=== PATIENT | male | born 1955 | race Caucasian/White ===

== ENCOUNTER → 2019-06-25 | Outpatient (CLI) | payer MEDICARE ==
--- NOTE | 2019-06-25 10:30 | Diagnostic Imaging Report ---
Exam: Bone mineral density study. History: Osteopenia. Comparison: None Discussion: Evaluation of the left hip, and lumbar spine was performed utilizing DEXA Hologic bone densitometer. The study is technically adequate. Left hip total bone mineral density: 0.521gm/cm2, T-score is -3.4, Z-score is -2.9. Left hip femoral neck bone mineral density: 0.553gm/cm2, T-score is -2.8, Z-score is -1.7. Lumbar spine total bone mineral density:0.924gm/cm2, T-score is-1.5, Z-score is -0.7. Impression: 1. Osteoporosis of the left hip, fracture risk is high 2. Osteopenia of the lumbar spine, fracture risk is increased Least significant change (LSC) for bone mineral density as provided by powder monkey is 0.023 g/cm2 for lumbar spine and 0.027 g/cm2 for total hip. 10 -year fracture risk per WHO Fracture Risk Assessment Tool (FRAX) for: Not reported because some T-scores at or below -2.5. Patient treated for osteoporosis The patient's fracture risk is compared to an age-matched control. Medical evaluation for secondary causes of low bone bone mineral density may be appropriate. Correlate clinically for the necessity and timing of the next bone mineral density study. Signed by: Dr. Patric Nur M.D. on 06/25/2019 10:26 AM
== END ==
LOC: DX 09:20
PROVIDERS: ATTEND Specialist
DX: M81.0 Age-related osteoporosis without current pathological fracture (principal)
CPT/HCPCS: 77080

== ENCOUNTER 2021-08-10 08:46 | Outpatient (RCR) | payer MEDICARE ==
[2021-08-10] MEDS ORDERED: LIDOCAINE/PRILOCAINE 2.5-2.5% KIT ONE (12:38)
[2021-08-10] MEDS ORDERED: MUPIROCIN 2% OINT 22 GM TUBE ONE (12:38)
== END 2021-08-30 ==
LOC: WCC 08:46
PROVIDERS: ATTEND Family Medicine
DX: L89.322 Pressure ulcer of left buttock, stage 2 (principal); I95.9 Hypotension, unspecified; N18.6 End stage renal disease; Q05.9 Spina bifida, unspecified
CPT/HCPCS: 87071; 87075; 87186; 87205

== ENCOUNTER 2021-11-30 06:30 | Emergency (ER) | payer MEDICARE, OTHER ==
[~2021-11-30] VITALS: Ht 154.9 cm; Wt 61.7 kg
== END 2021-11-30 07:37 | disposition home or self-care (01) ==
LOC: ER 06:38
DX: N18.6 End stage renal disease (principal); Z99.2 Dependence on renal dialysis; Z59.89 Other problems related to housing and economic circumstances; G40.909 Epilepsy, unspecified, not intractable, without status epilepticus; Q05.9 Spina bifida, unspecified; H54.62 Unqualified visual loss, left eye, normal vision right eye
CPT/HCPCS: 99283

== ENCOUNTER → 2022-06-30 | Outpatient (RCR) | payer MEDICARE | LOC: WCC 06-16 09:45 | PROVIDERS: ATTEND Internal Medicine Infectious Disease | DX: L89.323 Pressure ulcer of left buttock, stage 3 (principal); N18.6 End stage renal disease; I95.9 Hypotension, unspecified; Q05.9 Spina bifida, unspecified | CPT/HCPCS: 87071; 87075; 87186; 87205 ==

== ENCOUNTER 2022-07-24 10:09 | Outpatient (RCR) | payer MEDICARE ==
[2022-08-01] MEDS ORDERED: CYCLOBENZAPRINE10 MG PO (11:28)
[2022-08-01] MEDS ORDERED: AMLODIPINE BESYL5 MG PO (11:28)
[2022-08-01] MEDS ORDERED: VITAMIN D (11:28)
[2022-08-01] MEDS ORDERED: FAMOTIDINE20 MG PO (11:28)
[2022-08-01] MEDS ORDERED: ALENDRONATE SOD70 MG PO (11:28)
== END 2022-07-31 ==
LOC: WCC 10:09
PROVIDERS: ATTEND Internal Medicine Infectious Disease
DX: L89.323 Pressure ulcer of left buttock, stage 3 (principal); I95.9 Hypotension, unspecified; N18.6 End stage renal disease; Q05.9 Spina bifida, unspecified

== ENCOUNTER 2022-08-03 06:37 | Inpatient (IN) | payer MEDICARE ==
[~2022-08-03] VITALS: Ht 154.9 cm; Wt 61.7 kg
[~2022-08-03 06:37] MED LIST: ALENDRONATE SOD70 MG PO; AMLODIPINE BESYL5 MG PO; CYCLOBENZAPRINE10 MG PO; FAMOTIDINE20 MG PO; VITAMIN D
[2022-08-03] MEDS ORDERED: CLINDAMYCIN 600MG / 50ML 50 ML IV ONE (07:24)
[2022-08-03] MEDS ORDERED: SODIUM CHLORIDE 0.9% 500ML 500 ML ONE (07:49)
[2022-08-03 07:53] LABS: BASOPHILS % 0.6 % (0.0-1.0); EOSINOPHILS # (AUTO) 0.2 (0.0-0.4); EOSINOPHILS % 3.4 % (0.0-6.0); HEMATOCRIT 30.5 % (38.2-49.6); HEMOGLOBIN 9.1 g/dL (14.0-18.0); LYMPHOCYTES # (AUTO) 1.9 (1.0-3.2); LYMPHOCYTES % 28.6 % (18.0-39.1); MEAN CORPUSCULAR HEMOGLOBIN 29.6 pg (28-32); MEAN CORPUSCULAR HGB CONC 29.8 g/dL (31-35); MEAN CORPUSCULAR VOLUME 99.3 fL (81-99); MONOCYTES # (AUTO) 0.9 (0.2-0.8); NEUTROPHILS # (AUTO) 3.5 (2.1-6.9); NEUTROPHILS % 53.1 % (38.7-80.0); PLATELET COUNT 280 x10e3/uL (140-360); RED BLOOD COUNT 3.07 x10e6/uL (4.3-5.7)
[2022-08-03 08:11] LABS: ANION GAP 17.8 mmol/L (8-16); CREATININE, SERUM 4.04 mg/dL (0.72-1.25); POTASSIUM 4.8 mmol/L (3.5-5.1)
[2022-08-03 08:19] LABS: INR 0.94; PROTHROMBIN TIME 13.4 seconds (11.9-14.5)
[2022-08-03 08:20] LABS: PARTIAL THROMBOPLASTIN TIME 34.6 seconds (23.8-35.5)
[2022-08-03] MEDS ORDERED: MUPIROCIN 2% OINT 22 GM TUBE ONE (10:20)
[2022-08-03] MEDS ORDERED: BUPIVACAINE 0.5%/EPI 30 ML SDV INJ ONE (10:20)
[2022-08-03] MEDS ORDERED: GENTAMICIN SULFATE 40 MG/ML 2 ML VIAL ONE (10:46)
[2022-08-03] MEDS ORDERED: MIDAZOLAM HCL 2 MG/2 ML VIAL ONE (12:15)
[2022-08-03] MEDS ORDERED: FENTANYL CITRATE/PF 100MCG/2 ML INJ ONE (12:15)
[2022-08-03] MEDS ORDERED: LIDOCAINE HCL 2% LOCAL INJ 5 ML SDV VIAL INJ ONE (12:29)
[2022-08-03] MEDS ORDERED: PROPOFOL IV EMULSION 10 MG/ML 20 ML VIAL ONE (12:29)
[2022-08-03] MEDS ORDERED: POVIDONE IODINE 0.05% 0.05 % ML PO ONE (12:29)
[2022-08-03 12:30] VITALS: BP 138/72
[2022-08-03 16:17] VITALS: BP 143/76
[2022-08-03] MEDS: CLINDAMYCIN 600MG / 50ML 50 ML IV SCH (17:05)
[2022-08-03 20:00] VITALS: BP 155/86
[2022-08-03 21:00] VITALS: BP 155/86
[2022-08-04] VITALS (8 sets, daily range): BP systolic 131–159; BP diastolic 63–75
[2022-08-04] MEDS: CLINDAMYCIN 600MG / 50ML 50 ML IV SCH ×2 (01:47→09:16)
[2022-08-04] MEDS ORDERED: HYDROCODONE/APAP 7.5MG-325MG 1 EA TAB PO PRN (09:15)
[2022-08-04] MEDS ORDERED: HYDRALAZINE HCL 20 MG/ML VIAL IV PRN (09:15)
[2022-08-04] MEDS ORDERED: CYCLOBENZAPRINE HCL 10 MG TAB PO SCH (09:15)
[2022-08-04] MEDS ORDERED: ONDANSETRON HCL 4 MG ORAL DISINTEGRATING TAB PO PRN (09:15)
[2022-08-04] MEDS ORDERED: ONDANSETRON HCL INJ 2MG/ML 2ML 2 MG/ML VIAL IV PRN (09:15)
[2022-08-04] MEDS: ACETAMINOPHEN 325 MG TAB PO PRN (09:31)
[2022-08-04] MEDS: SENNA-S TABLET PO SCH ×2 (09:31→17:00)
[2022-08-04] MEDS: CYCLOBENZAPRINE HCL 10 MG TAB PO SCH ×2 (09:32→17:36)
[2022-08-04] MEDS: AMLODIPINE BESYLATE 5 MG TAB PO SCH (09:32)
[2022-08-04] MEDS: FAMOTIDINE 20 MG TAB PO SCH (09:33)
[2022-08-04] MEDS ORDERED: LEVOFLOXACIN 500 MG TAB PO SCH (10:00)
[2022-08-04] MEDS ORDERED: SODIUM CHLORIDE 0.9% 1000ML 2,000 ML ONE (10:47)
[2022-08-04] MEDS: SODIUM BICARBONATE 650 MG TAB PO SCH ×2 (17:36→21:31)
[2022-08-04] MEDS: EPOETIN ALFA-EPBX 10,000 UNIT/ML VIAL SC SCH (17:40)
[2022-08-05] VITALS (8 sets, daily range): BP systolic 146–156; BP diastolic 70–81
[2022-08-05 06:03] LABS: CALCIUM 8.3 mg/dL (8.4-10.2); CREATININE, SERUM 4.62 mg/dL (0.72-1.25)
[2022-08-05] MEDS: SENNA-S TABLET PO SCH ×2 (09:00→16:48)
[2022-08-05] MEDS ORDERED: SOD POLYSTYRENE SULFONATE SUSP 15 GM/60 ML BTL PO ONE (09:15)
[2022-08-05] MEDS: AMLODIPINE BESYLATE 5 MG TAB PO SCH (09:28)
[2022-08-05] MEDS: FAMOTIDINE 20 MG TAB PO SCH (09:28)
[2022-08-05] MEDS: SODIUM BICARBONATE 650 MG TAB PO SCH ×3 (09:28→20:54)
[2022-08-05] MEDS: CYCLOBENZAPRINE HCL 10 MG TAB PO SCH ×2 (09:34→16:47)
[2022-08-05] MEDS ORDERED: Vancomycin IV 1 GM in SODIUM CHLORIDE 0.9% 250ML 250 ML IV ONE (14:00)
[2022-08-05] MEDS: ACETAMINOPHEN 325 MG TAB PO PRN ×2 (16:51→23:58)
[2022-08-06] VITALS (8 sets, daily range): BP systolic 136–157; BP diastolic 71–84
[2022-08-06] MEDS: CYCLOBENZAPRINE HCL 10 MG TAB PO SCH ×2 (08:52→16:40)
[2022-08-06] MEDS: SENNA-S TABLET PO SCH ×2 (08:52→16:39)
[2022-08-06] MEDS: AMLODIPINE BESYLATE 5 MG TAB PO SCH (08:53)
[2022-08-06] MEDS: SODIUM BICARBONATE 650 MG TAB PO SCH ×3 (08:53→20:36)
[2022-08-06] MEDS: FAMOTIDINE 20 MG TAB PO SCH (08:53)
[2022-08-07] VITALS (8 sets, daily range): BP systolic 121–148; BP diastolic 63–75
[2022-08-07 05:38] LABS: BASOPHILS % 0.4 % (0.0-1.0); EOSINOPHILS # (AUTO) 0.2 (0.0-0.4); EOSINOPHILS % 4.3 % (0.0-6.0); HEMATOCRIT 31.7 % (38.2-49.6); HEMOGLOBIN 9.7 g/dL (14.0-18.0); LYMPHOCYTES # (AUTO) 1.2 (1.0-3.2); LYMPHOCYTES % 20.6 % (18.0-39.1); MEAN CORPUSCULAR HEMOGLOBIN 29.6 pg (28-32); MEAN CORPUSCULAR HGB CONC 30.6 g/dL (31-35); MEAN CORPUSCULAR VOLUME 96.6 fL (81-99); MONOCYTES # (AUTO) 0.9 (0.2-0.8); MONOCYTES % 16.5 % (4.4-11.3); NEUTROPHILS # (AUTO) 3.2 (2.1-6.9); PLATELET COUNT 276 x10e3/uL (140-360); RED BLOOD COUNT 3.28 x10e6/uL (4.3-5.7); RED CELL DISTRIBUTION WIDTH 14.6 % (11.7-14.4)
[2022-08-07 06:04] LABS: ALBUMIN 2.8 g/dL (3.5-5.0); ALBUMIN/GLOBULIN RATIO 0.7 (0.8-2.0); ANION GAP 18.8 mmol/L (8-16); CALCIUM 8.7 mg/dL (8.4-10.2); CREATININE, SERUM 5.03 mg/dL (0.72-1.25); POTASSIUM 4.8 mmol/L (3.5-5.1)
[2022-08-07 06:31] LABS: MAGNESIUM 2.2 MG/DL (1.3-2.1); PHOSPHORUS 4.9 MG/DL (2.3-4.7)
[2022-08-07] MEDS ORDERED: SODIUM CHLORIDE 0.9% 1000ML 2,000 ML ONE (08:48)
[2022-08-07] MEDS: CYCLOBENZAPRINE HCL 10 MG TAB PO SCH ×2 (09:00→17:27)
[2022-08-07] MEDS: SENNA-S TABLET PO SCH ×2 (09:00→17:27)
[2022-08-07] MEDS: SODIUM BICARBONATE 650 MG TAB PO SCH ×3 (09:00→21:22)
[2022-08-07] MEDS ORDERED: LEVOFLOXACIN 500 MG TAB PO SCH (10:00)
[2022-08-07] MEDS: FAMOTIDINE 20 MG TAB PO SCH (14:04)
[2022-08-07] MEDS: AMLODIPINE BESYLATE 5 MG TAB PO SCH (14:05)
[2022-08-07] MEDS: EPOETIN ALFA-EPBX 10,000 UNIT/ML VIAL SC SCH (17:28)
[2022-08-08 01:26] VITALS: BP 137/71
[2022-08-08 06:02] VITALS: BP 124/66
[2022-08-08 06:37] LABS: ANION GAP 19.9 mmol/L (8-16); CALCIUM 9.4 mg/dL (8.4-10.2); CREATININE, SERUM 4.51 mg/dL (0.72-1.25); POTASSIUM 4.9 mmol/L (3.5-5.1)
[2022-08-08 08:31] VITALS: BP 123/70
[2022-08-08] MEDS: AMLODIPINE BESYLATE 5 MG TAB PO SCH (09:43)
[2022-08-08] MEDS: SENNA-S TABLET PO SCH ×2 (09:43→16:23)
[2022-08-08] MEDS: SODIUM BICARBONATE 650 MG TAB PO SCH ×3 (09:43→21:07)
[2022-08-08] MEDS: CYCLOBENZAPRINE HCL 10 MG TAB PO SCH ×2 (09:43→16:23)
[2022-08-08] MEDS: FAMOTIDINE 20 MG TAB PO SCH (09:43)
[2022-08-08 11:59] VITALS: BP 133/66
[2022-08-08 15:54] VITALS: BP 125/71
[2022-08-08 21:30] VITALS: BP 142/72
== END 2022-08-08 21:37 | DRG 573 ==
LOC: OR 06:37 → PACU V 11:51 → MED/SURG3 12:25
PROVIDERS: ADMIT Plastic Surgery; ATTEND Plastic Surgery
PROC: 0KXP0ZZ Transfer Left Hip Muscle, Open Approach (ICD-10-PCS; 2022-08-03)
PROC: 0JB70ZZ Excision of Back Subcutaneous Tissue and Fascia, Open Approach (ICD-10-PCS; principal; 2022-08-03 10:15)
PROC: 5A1D70Z Performance of Urinary Filtration, Intermittent, Less than 6 Hours Per Day (ICD-10-PCS; 2022-08-04)
DX: L89.154 Pressure ulcer of sacral region, stage 4 (principal); G82.50 Quadriplegia, unspecified; N18.6 End stage renal disease; I12.0 Hypertensive chronic kidney disease with stage 5 chronic kidney disease or end stage renal disease; G82.20 Paraplegia, unspecified; Z99.2 Dependence on renal dialysis; M19.90 Unspecified osteoarthritis, unspecified site; G89.29 Other chronic pain; B95.4 Other streptococcus as the cause of diseases classified elsewhere; Q05.9 Spina bifida, unspecified; Z88.0 Allergy status to penicillin; Z91.041 Radiographic dye allergy status; D64.9 Anemia, unspecified; H54.8 Legal blindness, as defined in USA; D63.1 Anemia in chronic kidney disease; Z90.5 Acquired absence of kidney; E78.5 Hyperlipidemia, unspecified; Z20.822 Contact with and (suspected) exposure to COVID-19
CPT/HCPCS: 36415; 71046; 80048; 80053; 83735; 84100; 85025; 85610; 85730; 86704; 86706; 87071; 87075; 87205; 87340; 88304; 93005; 96360; 97605; 97606; 99251; J1580; J2001; J2250; J3010; J3370; J7030; J7040; J7050

== ENCOUNTER 2022-08-27 15:03 | Observation (INO) | payer MEDICARE ==
[~2022-08-27] VITALS: Ht 154.9 cm; Wt 61.7 kg
[2022-08-27] MEDS ORDERED: SODIUM CHLORIDE 0.9% 250ML 250 ML IV ONE (15:30)
[2022-08-27] MEDS ORDERED: SODIUM CHLORIDE FLUSH 10 ML SYR IV PRN (15:30)
[2022-08-27 15:43] LABS: BASOPHILS % 0.5 % (0.0-1.0); EOSINOPHILS # (AUTO) 0.2 (0.0-0.4); EOSINOPHILS % 3.2 % (0.0-6.0); HEMATOCRIT 35.9 % (38.2-49.6); HEMOGLOBIN 10.8 g/dL (14.0-18.0); LYMPHOCYTES % 26.2 % (18.0-39.1); MEAN CORPUSCULAR HEMOGLOBIN 29.2 pg (28-32); MEAN CORPUSCULAR HGB CONC 30.1 g/dL (31-35); MONOCYTES # (AUTO) 1.1 (0.2-0.8); MONOCYTES % 14.6 % (4.4-11.3); NEUTROPHILS # (AUTO) 4.2 (2.1-6.9); NEUTROPHILS % 55.2 % (38.7-80.0); PLATELET COUNT 338 x10e3/uL (140-360); RED CELL DISTRIBUTION WIDTH 15.1 % (11.7-14.4)
[2022-08-27 15:55] LABS: INR 0.93; PROTHROMBIN TIME 13.2 seconds (11.9-14.5)
[2022-08-27 15:56] LABS: PARTIAL THROMBOPLASTIN TIME 34.9 seconds (23.8-35.5)
[2022-08-27 16:31] LABS: ALANINE AMINOTRANSFERASE 14 IU/L (0-55); ALBUMIN 3.9 g/dL (3.5-5.0); ALKALINE PHOSPHATASE 74 IU/L (40-150); ANION GAP 23.8 mmol/L (8-16); BLOOD UREA NITROGEN 76 mg/dL (7-26); BUN/CREATININE RATIO 11 (6-25); CALCIUM 10.7 mg/dL (8.4-10.2); CARBON DIOXIDE 28 mmol/L (22-29); CHLORIDE 92 mmol/L (98-107); CREATININE, SERUM 6.84 mg/dL (0.72-1.25); GLUCOSE 104 mg/dL (74-118); POTASSIUM 5.8 mmol/L (3.5-5.1); SODIUM 138 mmol/L (136-145)
[2022-08-27] MEDS ORDERED: SODIUM BICARBONATE 8.4% 50 ML VIAL IV STA (17:13)
[2022-08-27] MEDS ORDERED: ALBUTEROL SULF 0.083% NEB SOLN 3 ML NEB NEB STA (17:13)
[2022-08-27] MEDS ORDERED: DEXTROSE 50% SYRINGE 50 ML IV STA (17:13)
[2022-08-27] MEDS ORDERED: INSULIN REGULAR, HUMAN 100 UNIT/1 ML IV ONE (17:15)
[2022-08-27] MEDS ORDERED: CALCIUM GLUCONATE 10% INJ 9.3 MEQ in SODIUM CHLORIDE 0.9% 100 ML IV ONE (17:15)
[2022-08-27] MEDS ORDERED: SODIUM BICARBONATE 8.4% INJ 50 ML SYR IV ONE (17:30)
[2022-08-27] MEDS ORDERED: ONDANSETRON HCL INJ 2MG/ML 2ML 2 MG/ML VIAL IV PRN (17:30)
[2022-08-27] MEDS: SODIUM CHLORIDE 0.9% 1000ML 1,000 ML IV SCH (17:30)
[2022-08-27 20:31] VITALS: BP 122/59
[2022-08-27 21:45] VITALS: BP 122/59
[2022-08-28] VITALS (7 sets, daily range): BP systolic 126–157; BP diastolic 60–82
[2022-08-28 05:15] LABS: BASOPHILS % 0.5 % (0.0-1.0); EOSINOPHILS # (AUTO) 0.1 (0.0-0.4); EOSINOPHILS % 2.2 % (0.0-6.0); HEMATOCRIT 31.6 % (38.2-49.6); HEMOGLOBIN 9.4 g/dL (14.0-18.0); LYMPHOCYTES # (AUTO) 1.5 (1.0-3.2); LYMPHOCYTES % 27.1 % (18.0-39.1); MEAN CORPUSCULAR HEMOGLOBIN 29.1 pg (28-32); MEAN CORPUSCULAR HGB CONC 29.7 g/dL (31-35); MEAN CORPUSCULAR VOLUME 97.8 fL (81-99); MONOCYTES # (AUTO) 0.8 (0.2-0.8); MONOCYTES % 14.8 % (4.4-11.3); NEUTROPHILS % 55.2 % (38.7-80.0); PLATELET COUNT 257 x10e3/uL (140-360); RED BLOOD COUNT 3.23 x10e6/uL (4.3-5.7); RED CELL DISTRIBUTION WIDTH 15.1 % (11.7-14.4)
[2022-08-28] MEDS ORDERED: PANTOPRAZOLE SO40 MG PO (06:26)
[2022-08-28] MEDS ORDERED: DEXAMETHASONE SO5 ML OS (06:26)
[2022-08-28] MEDS ORDERED: SODIUM BICARBO650 MG PO (06:26)
[2022-08-28] MEDS ORDERED: SEVELAMER CARB800 MG PO (06:26)
[2022-08-28 06:36] LABS: ANION GAP 22.8 mmol/L (8-16); CALCIUM 10.2 mg/dL (8.4-10.2); CREATININE, SERUM 7.36 mg/dL (0.72-1.25); POTASSIUM 5.8 mmol/L (3.5-5.1)
[2022-08-28] MEDS ORDERED: SODIUM CHLORIDE 0.9% 1000ML 2,000 ML ONE (09:44)
[2022-08-28] MEDS: SODIUM BICARBONATE 650 MG TAB PO SCH ×3 (09:53→21:31)
[2022-08-28] MEDS ORDERED: OPTH OP PRN (10:30)
[2022-08-28] MEDS ORDERED: ACETAMINOPHEN 325 MG TAB PO PRN (10:30)
[2022-08-28] MEDS ORDERED: DEXAMETHASONE 0.1% OP PRN (10:30)
[2022-08-28] MEDS: SEVELAMER CARBONATE 800 MG TAB PO SCH ×2 (11:36→16:53)
[2022-08-28] MEDS: AMLODIPINE BESYLATE 5 MG TAB PO SCH (11:37)
[2022-08-28] MEDS: CYCLOBENZAPRINE HCL 10 MG TAB PO SCH (11:38)
[2022-08-28] MEDS ORDERED: MIDAZOLAM HCL 2 MG/2 ML VIAL ONE (12:26)
[2022-08-28] MEDS ORDERED: FENTANYL CITRATE/PF 100MCG/2 ML INJ ONE (12:26)
[2022-08-28] MEDS ORDERED: PROPOFOL IV EMULSION 10 MG/ML 20 ML VIAL ONE (12:44)
[2022-08-28] MEDS ORDERED: LIDOCAINE HCL 2% LOCAL INJ 5 ML SDV VIAL INJ ONE (12:44)
[2022-08-28 16:47] LABS: ANION GAP 21.1 mmol/L (8-16); CALCIUM 8.9 mg/dL (8.4-10.2); CREATININE, SERUM 3.35 mg/dL (0.72-1.25); POTASSIUM 4.1 mmol/L (3.5-5.1)
[2022-08-28] MEDS ORDERED: EPOETIN ALFA-EPBX 10,000 UNIT/ML VIAL SC SCH (17:00)
[2022-08-28] MEDS ORDERED: EPINEPHRINE HCL 1:1000 1ML 1 MG/ML AMP ONE (18:48)
[2022-08-29] VITALS (7 sets, daily range): BP systolic 133–152; BP diastolic 69–78
[2022-08-29 04:57] LABS: BASOPHILS % 0.5 % (0.0-1.0); EOSINOPHILS # (AUTO) 0.3 (0.0-0.4); EOSINOPHILS % 4.3 % (0.0-6.0); HEMATOCRIT 33.3 % (38.2-49.6); HEMOGLOBIN 9.8 g/dL (14.0-18.0); LYMPHOCYTES # (AUTO) 1.1 (1.0-3.2); LYMPHOCYTES % 19.1 % (18.0-39.1); MEAN CORPUSCULAR HEMOGLOBIN 29.4 pg (28-32); MEAN CORPUSCULAR HGB CONC 29.4 g/dL (31-35); MONOCYTES # (AUTO) 0.8 (0.2-0.8); MONOCYTES % 14.2 % (4.4-11.3); NEUTROPHILS # (AUTO) 3.6 (2.1-6.9); NEUTROPHILS % 61.6 % (38.7-80.0); PLATELET COUNT 238 x10e3/uL (140-360); RED BLOOD COUNT 3.33 x10e6/uL (4.3-5.7); RED CELL DISTRIBUTION WIDTH 15.2 % (11.7-14.4)
[2022-08-29 05:14] LABS: ANION GAP 19.7 mmol/L (8-16); CALCIUM 8.6 mg/dL (8.4-10.2); CREATININE, SERUM 4.85 mg/dL (0.72-1.25); POTASSIUM 5.7 mmol/L (3.5-5.1)
[2022-08-29] MEDS: SEVELAMER CARBONATE 800 MG TAB PO SCH ×3 (10:18→17:10)
[2022-08-29] MEDS: CYCLOBENZAPRINE HCL 10 MG TAB PO SCH (10:19)
[2022-08-29] MEDS: SODIUM BICARBONATE 650 MG TAB PO SCH ×2 (10:19→15:00)
[2022-08-29] MEDS: AMLODIPINE BESYLATE 5 MG TAB PO SCH (10:19)
[2022-08-29] MEDS ORDERED: SODIUM CHLORIDE 0.9% 1000ML 2,000 ML IV PRN (16:45)
== END 2022-08-29 22:28 | disposition home or self-care (01) ==
LOC: ER 15:16 → ERHOLD 17:21 → MED/SURG 19:52
PROVIDERS: ADMIT Internal Medicine; ATTEND Internal Medicine
DX: K29.71 Gastritis, unspecified, with bleeding (principal); I12.0 Hypertensive chronic kidney disease with stage 5 chronic kidney disease or end stage renal disease; N18.6 End stage renal disease; Z99.2 Dependence on renal dialysis; E87.5 Hyperkalemia; Q05.9 Spina bifida, unspecified; Z99.3 Dependence on wheelchair; H54.62 Unqualified visual loss, left eye, normal vision right eye; C44.90 Unspecified malignant neoplasm of skin, unspecified; Z20.822 Contact with and (suspected) exposure to COVID-19; K44.9 Diaphragmatic hernia without obstruction or gangrene; D63.8 Anemia in other chronic diseases classified elsewhere; Z85.828 Personal history of other malignant neoplasm of skin
CPT/HCPCS: 36415 ×3; 43239; 71045; 80048 ×2; 80053; 85025 ×3; 85610; 85730; 86704; 86706; 86850; 86900; 87340; 88305; 88342; 93005; 94640; 94799 ×2; 96361; 99284; C9113 ×3; G0378 ×3; J0610; J1817; J2001; J2250; J2704; J3010; J7030 ×3; J7050 ×2; J7799; U0002; 88304; 88312; 90962; J0171

== ENCOUNTER 2023-01-12 17:52 | Inpatient (IN) | payer MEDICARE, OTHER ==
[~2023-01-12] VITALS: Ht 154.9 cm; Wt 56.7 kg
[~2023-01-12 17:52] MED LIST changes: +CEFDINIR300 MG PO; +DEXAMETHASONE SO5 ML OS; +PANTOPRAZOLE SO40 MG PO; +SEVELAMER CARB800 MG PO; +SODIUM BICARBO650 MG PO
[2023-01-12] MEDS ORDERED: ONDANSETRON HCL INJ 2MG/ML 2ML 2 MG/ML VIAL IV STA (18:03)
[2023-01-12] MEDS ORDERED: SODIUM CHLORIDE 0.9% 1000ML 1,000 ML IV ONE (18:15)
[2023-01-12 18:40] LABS: BASOPHILS # (AUTO) 0.1 (0.0-0.1); BASOPHILS % 0.8 % (0.0-1.0); EOSINOPHILS # (AUTO) 0.2 (0.0-0.4); EOSINOPHILS % 2.8 % (0.0-6.0); HEMATOCRIT 33.6 % (38.2-49.6); HEMOGLOBIN 10.8 g/dL (14.0-18.0); LYMPHOCYTES # (AUTO) 2.1 (1.0-3.2); LYMPHOCYTES % 31.3 % (18.0-39.1); MEAN CORPUSCULAR HGB CONC 32.1 g/dL (31-35); MEAN CORPUSCULAR VOLUME 93.3 fL (81-99); MONOCYTES # (AUTO) 0.9 (0.2-0.8); MONOCYTES % 13.9 % (4.4-11.3); NEUTROPHILS # (AUTO) 3.3 (2.1-6.9); NEUTROPHILS % 50.7 % (38.7-80.0); PLATELET COUNT 263 x10e3/uL (140-360); RED CELL DISTRIBUTION WIDTH 13.7 % (11.7-14.4)
[2023-01-12 18:53] LABS: PARTIAL THROMBOPLASTIN TIME 32.4 seconds (23.8-35.5); PROTHROMBIN TIME 13.7 seconds (11.9-14.5)
[2023-01-12 18:54] LABS: ALBUMIN 3.8 g/dL (3.5-5.0); ANION GAP 16.6 mmol/L (8-16); CALCIUM 9.6 mg/dL (8.4-10.2); CREATININE, SERUM 3.96 mg/dL (0.72-1.25)
[2023-01-12 18:56] LABS: POTASSIUM 5.6 mmol/L (3.5-5.1)
[2023-01-12] MEDS ORDERED: IOPAMIDOL 370 MG/ML 100 ML INFUS..BTL INJ ONE (19:01)
[2023-01-12] MEDS ORDERED: SODIUM CHLORIDE FLUSH 10 ML SYR INJ PRN (21:45)
[2023-01-12] MEDS ORDERED: ONDANSETRON HCL INJ 2MG/ML 2ML 2 MG/ML VIAL IV PRN (21:45)
[2023-01-13] VITALS (7 sets, daily range): BP systolic 142–154; BP diastolic 69–77
[2023-01-13 01:17] LABS: ANION GAP 15.4 mmol/L (8-16); CALCIUM 8.5 mg/dL (8.4-10.2); CREATININE, SERUM 4.39 mg/dL (0.72-1.25)
[2023-01-13 01:29] LABS: POTASSIUM 5.4 mmol/L (3.5-5.1)
[2023-01-13] MEDS ORDERED: SODIUM CHLORIDE 0.9% 1000ML 2,000 ML ONE (07:34)
[2023-01-13 07:42] LABS: BASOPHILS # (AUTO) 0.1 (0.0-0.1); BASOPHILS % 0.9 % (0.0-1.0); EOSINOPHILS # (AUTO) 0.2 (0.0-0.4); EOSINOPHILS % 3.1 % (0.0-6.0); LYMPHOCYTES % 35.7 % (18.0-39.1); MEAN CORPUSCULAR HEMOGLOBIN 30.3 pg (28-32); MEAN CORPUSCULAR HGB CONC 32.3 g/dL (31-35); MEAN CORPUSCULAR VOLUME 93.9 fL (81-99); MONOCYTES # (AUTO) 0.7 (0.2-0.8); MONOCYTES % 12.8 % (4.4-11.3); NEUTROPHILS # (AUTO) 2.6 (2.1-6.9); NEUTROPHILS % 47.1 % (38.7-80.0); PLATELET COUNT 205 x10e3/uL (140-360); RED CELL DISTRIBUTION WIDTH 13.8 % (11.7-14.4)
[2023-01-13 08:01] LABS: ALBUMIN 3.2 g/dL (3.5-5.0); ANION GAP 16.6 mmol/L (8-16); CALCIUM 8.5 mg/dL (8.4-10.2); CREATININE, SERUM 4.96 mg/dL (0.72-1.25)
[2023-01-13 08:04] LABS: POTASSIUM 5.6 mmol/L (3.5-5.1)
[2023-01-13] MEDS ORDERED: ACETAMINOPHEN 325 MG TAB PO PRN (11:00)
[2023-01-13] MEDS ORDERED: OPTH OP PRN (11:00)
[2023-01-13] MEDS ORDERED: DEXAMETHASONE 0.1% OP PRN (11:00)
[2023-01-13] MEDS: SEVELAMER CARBONATE 800 MG TAB PO SCH ×2 (12:00→16:33)
[2023-01-13] MEDS ORDERED: PROPOFOL IV EMULSION 50 ML IV ONE (13:21)
[2023-01-13 14:07] LABS: BASOPHILS # (AUTO) 0.1 (0.0-0.1); BASOPHILS % 1.4 % (0.0-1.0); EOSINOPHILS # (AUTO) 0.1 (0.0-0.4); EOSINOPHILS % 3.3 % (0.0-6.0); HEMATOCRIT 31.2 % (38.2-49.6); HEMOGLOBIN 10.1 g/dL (14.0-18.0); LYMPHOCYTES # (AUTO) 1.4 (1.0-3.2); LYMPHOCYTES % 32.6 % (18.0-39.1); MEAN CORPUSCULAR HEMOGLOBIN 30.1 pg (28-32); MEAN CORPUSCULAR HGB CONC 32.4 g/dL (31-35); MEAN CORPUSCULAR VOLUME 92.9 fL (81-99); MONOCYTES # (AUTO) 0.5 (0.2-0.8); MONOCYTES % 11.9 % (4.4-11.3); NEUTROPHILS # (AUTO) 2.2 (2.1-6.9); NEUTROPHILS % 50.6 % (38.7-80.0); PLATELET COUNT 206 x10e3/uL (140-360); RED BLOOD COUNT 3.36 x10e6/uL (4.3-5.7); RED CELL DISTRIBUTION WIDTH 13.8 % (11.7-14.4)
[2023-01-13] MEDS ORDERED: SODIUM CHLORIDE 0.9% 500ML 500 ML ONE (14:15)
[2023-01-13] MEDS: SODIUM BICARBONATE 650 MG TAB PO SCH ×2 (15:00→21:01)
[2023-01-13 17:39] LABS: BASOPHILS # (AUTO) 0.1 (0.0-0.1); EOSINOPHILS # (AUTO) 0.1 (0.0-0.4); EOSINOPHILS % 2.5 % (0.0-6.0); HEMATOCRIT 33.3 % (38.2-49.6); HEMOGLOBIN 10.8 g/dL (14.0-18.0); LYMPHOCYTES # (AUTO) 1.3 (1.0-3.2); LYMPHOCYTES % 26.8 % (18.0-39.1); MEAN CORPUSCULAR HGB CONC 32.4 g/dL (31-35); MEAN CORPUSCULAR VOLUME 92.5 fL (81-99); MONOCYTES # (AUTO) 0.6 (0.2-0.8); MONOCYTES % 12.8 % (4.4-11.3); NEUTROPHILS # (AUTO) 2.7 (2.1-6.9); NEUTROPHILS % 56.5 % (38.7-80.0); PLATELET COUNT 217 x10e3/uL (140-360); RED CELL DISTRIBUTION WIDTH 13.9 % (11.7-14.4)
[2023-01-14] VITALS: BP 145/71
[2023-01-14 04:00] VITALS: BP 136/68
[2023-01-14 04:56] LABS: BASOPHILS # (AUTO) 0.1 (0.0-0.1); EOSINOPHILS # (AUTO) 0.2 (0.0-0.4); EOSINOPHILS % 3.2 % (0.0-6.0); HEMATOCRIT 31.2 % (38.2-49.6); HEMOGLOBIN 9.9 g/dL (14.0-18.0); LYMPHOCYTES # (AUTO) 1.9 (1.0-3.2); LYMPHOCYTES % 29.4 % (18.0-39.1); MEAN CORPUSCULAR HEMOGLOBIN 29.7 pg (28-32); MEAN CORPUSCULAR HGB CONC 31.7 g/dL (31-35); MEAN CORPUSCULAR VOLUME 93.7 fL (81-99); MONOCYTES # (AUTO) 0.9 (0.2-0.8); MONOCYTES % 13.5 % (4.4-11.3); NEUTROPHILS # (AUTO) 3.3 (2.1-6.9); NEUTROPHILS % 52.7 % (38.7-80.0); PLATELET COUNT 215 x10e3/uL (140-360); RED BLOOD COUNT 3.33 x10e6/uL (4.3-5.7); RED CELL DISTRIBUTION WIDTH 13.9 % (11.7-14.4)
[2023-01-14] MEDS: SEVELAMER CARBONATE 800 MG TAB PO SCH ×2 (07:59→12:26)
[2023-01-14 08:00] VITALS: BP 132/71
[2023-01-14] MEDS ORDERED: CYCLOBENZAPRINE HCL 10 MG TAB PO SCH (09:00)
[2023-01-14] MEDS ORDERED: AMLODIPINE BESYLATE 5 MG TAB PO SCH (09:00)
[2023-01-14] MEDS ORDERED: FAMOTIDINE 20 MG TAB PO SCH (09:00)
[2023-01-14] MEDS: SODIUM BICARBONATE 650 MG TAB PO SCH (09:13)
[2023-01-14 10:53] VITALS: BP 132/71
[2023-01-14 11:55] LABS: BASOPHILS # (AUTO) 0.1 (0.0-0.1); BASOPHILS % 0.9 % (0.0-1.0); EOSINOPHILS # (AUTO) 0.2 (0.0-0.4); EOSINOPHILS % 3.4 % (0.0-6.0); HEMATOCRIT 33.9 % (38.2-49.6); HEMOGLOBIN 10.5 g/dL (14.0-18.0); LYMPHOCYTES # (AUTO) 1.9 (1.0-3.2); MEAN CORPUSCULAR HEMOGLOBIN 29.9 pg (28-32); MEAN CORPUSCULAR VOLUME 96.6 fL (81-99); MONOCYTES # (AUTO) 0.8 (0.2-0.8); MONOCYTES % 13.5 % (4.4-11.3); NEUTROPHILS # (AUTO) 2.8 (2.1-6.9); RED BLOOD COUNT 3.51 x10e6/uL (4.3-5.7); RED CELL DISTRIBUTION WIDTH 14.1 % (11.7-14.4)
[2023-01-14 12:23] LABS: PLATELET COUNT 212 x10e3/uL (140-360)
[2023-01-14] MEDS ORDERED: PANTOPRAZOLE SO40 MG PO (12:38)
== END 2023-01-14 14:05 | disposition home or self-care (01) | DRG 377 ==
LOC: ER 18:04 → ERHOLD 21:39 → MED/SURG 01-13
PROVIDERS: ADMIT Internal Medicine; ATTEND Internal Medicine
PROC: 0DB48ZX Excision of Esophagogastric Junction, Via Natural or Artificial Opening Endoscopic, Diagnostic (ICD-10-PCS; 2023-01-13)
PROC: 0DB78ZX Excision of Stomach, Pylorus, Via Natural or Artificial Opening Endoscopic, Diagnostic (ICD-10-PCS; 2023-01-13)
PROC: 5A1D70Z Performance of Urinary Filtration, Intermittent, Less than 6 Hours Per Day (ICD-10-PCS; principal; 2023-01-13 15:00)
DX: K29.71 Gastritis, unspecified, with bleeding (principal); N18.6 End stage renal disease; I12.0 Hypertensive chronic kidney disease with stage 5 chronic kidney disease or end stage renal disease; H54.40 Blindness, one eye, unspecified eye; G40.909 Epilepsy, unspecified, not intractable, without status epilepticus; K92.0 Hematemesis; Q05.9 Spina bifida, unspecified; K76.89 Other specified diseases of liver; K44.9 Diaphragmatic hernia without obstruction or gangrene; K29.81 Duodenitis with bleeding; E87.5 Hyperkalemia; Z20.822 Contact with and (suspected) exposure to COVID-19; Z99.2 Dependence on renal dialysis; Z88.0 Allergy status to penicillin; Z85.828 Personal history of other malignant neoplasm of skin; Z90.5 Acquired absence of kidney
CPT/HCPCS: 0223U; 36415; 43239; 74174; 80048; 80053; 83690; 84132; 85014; 85018; 85025; 85610; 85730; 86706; 86850; 86900; 87340; 88304; 88305; 88312; 88342; 99284; J2405; J7030; J7040; Q9967